=== PATIENT | male | born 1955 | race Caucasian/White ===

== ENCOUNTER → 2017-02-01 | Outpatient (CLI) | payer OTHER ==
--- NOTE | 2017-02-02 11:12 | CONS ---
DATE OF CONSULTATION: 02/01/2017 CONSULTATION: A 62-year-old gentleman who has [facility] for possible obstructive sleep apnea- hypopnea syndrome. HISTORY OF PRESENT ILLNESS/SLEEP WAKE EVALUATION: SLEEP SCHEDULE: Patient's usual sleep schedule from 9:30 p.m. until 5:00 a.m. on working days and from 11:00 p.m. until 6:30 a.m. on weekends. FALLING ASLEEP: No problem usually falling asleep. He has TV set in bedroom. DURING SLEEP: Sleep usually on the side position. Wakes up from sleep once at night with nocturia. Patient snores. DURING THE DAY/WAKE STATE: He denied any significant excessive daytime sleepiness. Benson sleepiness scale is 4. PAST MEDICAL HISTORY: Practically none. MEDICATIONS: None. FAMILY HISTORY: Diabetes. SOCIAL HISTORY: Positive for smoking 35-pack years. Alcohol consumption occasional. REVIEW OF SYSTEMS: Practically negative. No fevers No double vision. No recent chest pain. No shortness of breath. No abdominal pain. No bleeding episodes. No blood in urine. No seizure episodes. PHYSICAL EXAMINATION: GENERAL: gentleman without distress. VITAL SIGNS: BP 132/71, HR 70, RR 17, height 5 feet 9-1/2, weight 279.8, body mass index 40.6. Neck 20 inches in circumference. Temperature 98.7. Oxygen saturation at room air 96%. HEENT: PERRLA, EOMI. Evaluation of oropharynx showed extremely low position of soft palate. Mallampati IV. Slight restriction of nasal breathing bilaterally. NECK: Supple. No JVD. Thyroid is not palpable. LUNGS: clear to percussion and to auscultation. Good air exchange. No wheezing or rhonchi. HEART: S1, S2 regular. No murmurs, gallops or rubs. ABDOMEN: Obese. Soft and nontender. Bowel sounds are present. No organomegaly appreciated. EXTREMITIES: 1+ ankle edema. VP DESIGN: Awake, alert and oriented x3. Cranial nerves II through VII intact. There is no fasciculation or atrophy noted. No focal deficits observed. IMPRESSION: 1. Snoring, extremely low position of soft palate, wide neck 20 inches, awakenings from sleep with nocturia, obstructive sleep apnea-hypopnea syndrome. 2. Obesity, BMI 40.6. 3. 1+ swelling of ankles. 4. Some restriction of nasal breathing bilaterally. 5. Smoker for 35 pack years. PLAN: 1. Polysomnography for evaluation of patients breathing during sleep. 2. CPAP/BiPAP titration if sleep study confirms obstructive sleep apnea- hypopnea syndrome. 3. Preferable position during sleep on the side. 4. No driving if patient feels any sleepiness. Patient is aware of civil and criminal liability for unsafe driving. 5. I will see the patient for follow-up visit to explain results of the testing and following plan. Sincerely, Katt Guillermo MD, PhD, FAASM Diplomat of [employer] [place] [employer], Sleep Medicine Board by [employer] [place] [employer] [facility] [place] [facility]
== END | disposition home or self-care (01) ==
LOC: SLEEP 15:49
PROVIDERS: ATTEND Internal Medicine
DX: G47.33 Obstructive sleep apnea (adult) (pediatric) (principal); E66.9 Obesity, unspecified; M79.89 Other specified soft tissue disorders
CPT/HCPCS: 99211